=== PATIENT | male | born 1970 | race Caucasian/White ===

== ENCOUNTER 2016-12-22 16:05 | Emergency (ER) | payer MEDICARE ==
[2016-12-22 16:26] LABS: #Basophils 0.1 thou/uL (0.0-0.2); #Eosinphils 0.1 thou/uL (0.0-0.7); #Lymphocytes 1.3 thou/uL (1.20-3.40); #Monocytes 0.6 thou/uL (0.11-0.59); #Neutrophils 8.6 thou/uL (1.40-6.50); %Basophils 0.7 % (0.0-1.0); %Eosinophils 0.7 % (0.0-10.0); %Lymphocytes 11.9 % (21.0-51.0); %Monocytes 5.6 % (0.0-10.0); %Neutrophils 81.1 % (42.0-75.0); Hemoglobin 18.7 g/dL (14.0-18.0); Mean Corpuscular Hemoglobin 30.8 pg (27.0-31.0); Mean Corpuscular Volume 93.3 fl (80.0-94.0); Platelet Count 335 thou/uL (130-400); RBC Distribution Width 11.7 % (11.5-14.5); Red Blood Cell (RBC) Count 6.07 mill/uL (4.70-6.10); White Blood Cell (WBC) Count 10.5 thou/uL (4.8-10.8)
[2016-12-22] MEDS ORDERED: Pantoprazole 40 MG VIAL ONE (16:26)
[2016-12-22] MEDS ORDERED: Ondansetron HCl/PF 4 MG/2 ML Vial ONE (16:26)
[2016-12-22 16:42] LABS: ALT (SGPT) 15 U/L (8-55); AST (SGOT) 20 U/L (5-34); Albumin 4.8 g/dL (3.5-5.0); Alkaline Phosphatase 100 U/L (40-150); Anion Gap 16 mmol/L (10-20); BUN (Urea Nitrogen) 14 mg/dL (8.9-20.6); Bilirubin, Total 0.7 mg/dL (0.2-1.2); CK (CPK) 370 U/L (30-200); Calc. Creatinine Clearance 0 mL/min (70-130); Carbon Dioxide 24 mmol/L (22-29); Chloride 103 mmol/L (98-107); Estimated GFR-MDRD 86; Globulin 3.7 g/dL (2.4-3.5); Glucose 158 mg/dL (70-105); Lipase 10 U/L (8-78); Potassium 3.9 mmol/L (3.5-5.1); Protein, Total 8.5 g/dL (6.0-8.3); Sodium 139 mmol/L (136-145)
[2016-12-22 16:44] LABS: CKMB 3.8 ng/mL (0-6.6); Troponin I Less than 0.010 ng/mL (< 0.028)
[2016-12-22] MEDS ORDERED: Labetalol HCl 100 MG/20 ML VIAL ONE (17:26)
[2016-12-22] MEDS ORDERED: Benzocaine 20% Spray 60 ML CAN ONE (18:05)
[2016-12-22] MEDS ORDERED: Lidocaine 1% 20 ML MDV ONE (18:07)
--- NOTE | 2016-12-22 21:12 | RAD ---
PORTABLE CHEST Date: 12-22-16 An AP portable film at 1634 is compared with a 09-02-15 study. FINDINGS: The heart size is unchanged. There is no vascular congestion, edema, or pleural effusion. No focal p ulmonary infiltrate was seen. The trachea is midline. IMPRESSION: No acute thoracic finding. POS: HOME
--- NOTE | 2016-12-22 21:26 | CT ---
CT ABDOMEN AND PELVIS WITH CONTRAST: Date: 12-22-16 Technique: Spiral CT of the abdomen and pelvis was performed for evaluation of abdominal pain and ri ght lower back pain. Axial slices were acquired then coronal reconstructions were done. FINDINGS: The major finding on this study is dilated fluid filled loops of small bowel that range up to 3.6 cm in diameter. The small bowel remains dilated down to a transitional point in the ileum. Last few fe et of the terminal ileum returns to a normal size. The colon is normal in size as well. The findings are consistent with a distal small bowel obstruction. No free air or free fluid was appreciated. The lung bases are clear. The liver, spleen, pancreas, gallbladder, adrenal glands, and kidneys show ed no acute findings. There was no sign of hydronephrosis or ureteral calculi. The abdominal aorta w as normal in caliber throughout with no sign of aneurysm. CT of the pelvis was remarkable for a fluid collection between the urinary bladder and the rectum wh ich measured about 5.1 cm in diameter. It seems fairly contained and I would wonder if it might not be a bladder diverticulum as it is at least adjacent to the bladder, but I cannot prove a connection . Further studies would be needed to better define it. None of the patient's prior imaging studies s howed this area to compare with. Fat filled inguinal hernias are present bilaterally. I cannot adequ ate evaluate the patient's lumbar spine due to intense artifact from prior fusion with pedicle screw s. IMPRESSION: 1. Findings consistent with a distal small bowel obstruction with a transition point in the distal i leum. 2. Fluid collection between the bladder and rectum that seems contained and it is adjacent to the bl adder. It could be a bladder diverticulum, but this is not certain. Entities such as duplication cys ts might be a consideration. Other imaging would be needed to better characterize it. 3. No evidence of urinary tract obstruction or stones. 4. No evidence of aortic aneurysm. 5. Bilateral fat filled inguinal hernias. POS: HOME
== END 2016-12-22 18:40 | disposition short-term general hospital (02) ==
LOC: BURERS 16:05 → EDSEX 16:05 → BURERS 18:40
DX: K56.60 Unspecified intestinal obstruction (principal); I10 Essential (primary) hypertension; I20.9 Angina pectoris, unspecified; Q25.43 Congenital aneurysm of aorta; F17.210 Nicotine dependence, cigarettes, uncomplicated
CPT/HCPCS: 71010; 74177; 80053; 82550; 82553; 83690; 84484; 85025; 93005; 96361; 96374; 96375; 96376; C9113; J2001; J2270; J2405

== ENCOUNTER 2018-02-22 21:11 | Emergency (ER) | payer MEDICARE ==
[2018-02-22] MEDS ORDERED: Acetaminophen/Codeine 30-300mg Tablet ONE (21:36)
[2018-02-22] MEDS ORDERED: Ketorolac Tromethamine 60 MG/2 ML VIAL ONE (21:36)
[2018-02-22] MEDS ORDERED: Orphenadrine Citrate 60 MG/2 ML VIAL ONE (21:36)
== END 2018-02-22 22:09 | disposition home or self-care (01) ==
LOC: BURERS 21:11
DX: M54.5 Low back pain (principal); I10 Essential (primary) hypertension; F17.210 Nicotine dependence, cigarettes, uncomplicated; N40.0 Benign prostatic hyperplasia without lower urinary tract symptoms; D64.9 Anemia, unspecified; Z79.899 Other long term (current) drug therapy
CPT/HCPCS: 96372; J1885; J2360

== ENCOUNTER 2018-10-06 16:25 | Emergency (ER) | payer MEDICARE ==
[2018-10-06] MEDS ORDERED: Benzonatate 100 MG CAP ONE (16:48)
[2018-10-06] MEDS ORDERED: methylPREDNISolone Acetate 40 mg/ml Vial ONE (17:10)
[2018-10-06] MEDS ORDERED: Azithromycin 250 MG TAB ONE (17:10)
--- NOTE | 2018-10-06 20:23 | RAD ---
CHEST TWO VIEWS: 10/06/18 Comparison is made with a 12/22/16 study. The heart is normal in size. There is no vascular congestion, edema, or pleural effusion. No focal pu lmonary infiltrate was seen. Median sternotomy sutures are noted as usual. IMPRESSION: No acute thoracic finding. POS: HOME
== END 2018-10-06 17:16 | disposition home or self-care (01) ==
LOC: BURERS 16:25
DX: J20.9 Acute bronchitis, unspecified (principal); J01.90 Acute sinusitis, unspecified; D64.9 Anemia, unspecified; I10 Essential (primary) hypertension; F17.210 Nicotine dependence, cigarettes, uncomplicated; I20.9 Angina pectoris, unspecified; Z79.899 Other long term (current) drug therapy
CPT/HCPCS: 71046; 96372; J1030

== ENCOUNTER 2019-01-23 22:26 | Emergency (ER) | payer MEDICARE ==
[2019-01-23 23:30] LABS: #Basophils 0.1 thou/uL (0.0-0.2); #Eosinphils 0.1 thou/uL (0.0-0.7); #Lymphocytes 1.8 thou/uL (1.20-3.40); #Monocytes 0.5 thou/uL (0.11-0.59); #Neutrophils 4.6 thou/uL (1.40-6.50); %Basophils 1.6 % (0.0-1.0); %Eosinophils 2.1 % (0.0-10.0); %Lymphocytes 25.4 % (21.0-51.0); %Monocytes 7.4 % (0.0-10.0); %Neutrophils 63.5 % (42.0-75.0); Mean Corpuscular HGB CONC 32.2 g/dL (32.0-36.0); Mean Corpuscular Hemoglobin 29.5 pg (27.0-31.0); Mean Corpuscular Volume 91.7 fL (78.0-98.0); Mean Platelet Volume 5.9 fL (7.4-10.4); Platelet Count 283 thou/uL (130-400); RBC Distribution Width 11.8 % (11.5-14.5); White Blood Cell (WBC) Count 7.2 thou/uL (4.8-10.8)
[2019-01-23 23:31] LABS: Manual Diff?? NO
[2019-01-23 23:32] LABS: MDiff Complete? YES
[2019-01-23] MEDS ORDERED: Fentanyl 100 MCG/2 ML VIAL ONE (23:36)
[2019-01-23 23:43] LABS: ALT (SGPT) 11 U/L (8-55); AST (SGOT) 14 U/L (5-34); Albumin 4.6 g/dL (3.5-5.0); Alkaline Phosphatase 97 U/L (40-150); Anion Gap 16 mmol/L (10-20); BUN (Urea Nitrogen) 13 mg/dL (8.4-25.7); Bilirubin, Total 0.5 mg/dL (0.2-1.2); CK (CPK) 199 U/L (30-200); Calc. Creatinine Clearance 0 mL/min (70-130); Calcium 9.8 mg/dL (7.8-10.44); Carbon Dioxide 24 mmol/L (22-29); Chloride 103 mmol/L (98-107); Estimated GFR-MDRD 66; Globulin 3.2 g/dL (2.4-3.5); Glucose 92 mg/dL (70-105); Potassium 3.5 mmol/L (3.5-5.1); Protein, Total 7.8 g/dL (6.0-8.3); Sodium 139 mmol/L (136-145)
[2019-01-23] MEDS ORDERED: Ondansetron PF 4 MG/2 ML Vial ONE (23:53)
[2019-01-23] MEDS ORDERED: Aspirin Chewable 81 MG TAB ONE (23:55)
[2019-01-23] MEDS ORDERED: Nitroglycerin 0.4 MG TAB 1 EACH ONE (23:55)
[2019-01-24 00:02] LABS: CKMB 2.2 ng/mL (0-6.6)
[2019-01-24] MEDS ORDERED: Nitroglycerin 50 MG/250 ML BOT 250 ML ONE (00:03)
[2019-01-24] MEDS ORDERED: Acetaminophen 500 MG TAB ONE (00:03)
[2019-01-24] MEDS ORDERED: Enoxaparin Sodium 100 MG/ML SYRINGE ONE (00:03)
--- NOTE | 2019-01-24 00:03 | CT ---
CT BRAIN NONCONTRAST: DATE: 01/23/2019 Time: 11:45 PM HISTORY: 49-year-old male with headache FINDINGS: There is no evidence of acute intra-axial or extra-axial hemorrhage. There is no midline shift or any other mass effect. There is no extra-axial fluid collection. There is no evidence of obstructive hydrocephalus. Calvarium is intact. IMPRESSION: No acute intracranial findings.
[2019-01-24 00:13] LABS: Bilirubin Negative (Negative); Blood, Urine Negative (Negative); Clarity Clear (Clear); Glucose, Urine (Dipstick) Negative (Negative); Leukocyte Negative (Negative); Nitrite Negative (Negative); Protein, Urine (Dipstick) Negative (Neg-Trace); Specific Gravity, Urine 1.007 (1.002-1.036); Urobilinogen 0.2 mg/dL (0.2-1.0); pH, Urine 5.5 (5.0-9.0)
--- NOTE | 2019-01-24 00:22 | RAD ---
RADIOGRAPH CHEST 1 VIEW: DATE: 01/24/2019 HISTORY: Chest pain in 49-year-old male FINDINGS: There are no airspace densities, pulmonary edema, pneumothorax, or cardiomegaly. The lateral costophr enic angles are sharp. Sternotomy wires. IMPRESSION: No acute cardiopulmonary findings.
== END 2019-01-24 00:30 | disposition short-term general hospital (02) ==
LOC: BURERS 22:26
DX: I21.4 Non-ST elevation (NSTEMI) myocardial infarction (principal); I10 Essential (primary) hypertension; F17.210 Nicotine dependence, cigarettes, uncomplicated; Z79.899 Other long term (current) drug therapy
CPT/HCPCS: 36416; 70450; 71045; 80053; 81003; 82550; 82553; 84484; 85025; 93005; 96361; 96365; 96372; 96375; J1650; J2405; J3010

== ENCOUNTER 2019-04-05 13:39 | Emergency (ER) | payer MEDICARE ==
[2019-04-05] MEDS ORDERED: HYDROcodone/Acetaminophen 10/325 mg Tablet ONE (14:05)
[2019-04-05] MEDS ORDERED: Ketorolac Tromethamine 30 MG/ML VIAL ONE (14:05)
[2019-04-05 14:10] LABS: Bilirubin Small (Negative); Blood, Urine Trace (Negative); Clarity Clear (Clear); Glucose, Urine (Dipstick) Negative (Negative); Leukocyte Negative (Negative); Nitrite Negative (Negative); Protein, Urine (Dipstick) 30 mg/dL (Neg-Trace); Urobilinogen 0.2 mg/dL (Less than 2)
[2019-04-05 14:19] LABS: Bacteria/HPF 2+ HPF (None Seen); Mucous/LPF 4+ LPF (<2+); RBC/HPF 0-3 HPF (0-3); Squamous Epithelial 0-3 HPF (0-3); WBC/HPF 0-3 HPF (0-3)
--- NOTE | 2019-04-05 17:43 | CT ---
CT ABDOMEN AND PELVIS WITHOUT CONTRAST: 04/05/19 Comparison is made with the prior study of 12/22/16. The lung bases are clear. The liver, spleen, pancreas, adrenal glands, gallbladder, kidneys, abdomina l aorta were unremarkable within the limitations of a noncontrast study. Some perinephric stranding is present bilaterally but it was to some degree before. There is probably a small cyst attached to the lower pole of the right kidney. I see a similar finding on the older s tudy. Regarding the abdominal aorta, there is no evidence of aneurysm. Only scant amounts of calcification were present within it. The bowel shows no distention. The previous exam shows a bowel obstruction but this is certainly not present today. The appendix appears normal. There is no bowel wall thickening. No free air or free fl uid was seen. CT of the pelvis shows bilateral fat filled inguinal hernias as before. No pelvic mass, inflammatory change, or free fluid was noted. There has been a posterior fusion with pedicle screws in the lower l umbosacral levels. IMPRESSION: 1. No acute findings to explain the patient's abdominal pain. 2. Presumed small cyst attached to the lower pole of the right kidney. POS: HOME
== END 2019-04-05 14:55 | disposition home or self-care (01) ==
LOC: BURERS 13:39
DX: M54.5 Low back pain (principal); G89.29 Other chronic pain; I10 Essential (primary) hypertension; N40.0 Benign prostatic hyperplasia without lower urinary tract symptoms; D64.9 Anemia, unspecified; F17.210 Nicotine dependence, cigarettes, uncomplicated
CPT/HCPCS: 74176; 81003; 81015; 96372; J1885

== ENCOUNTER 2020-06-27 18:36 | Emergency (ER) | payer MEDICARE ==
[2020-06-27] MEDS ORDERED: Albuterol 200 PUFF (6.7GM INHALER) ONE (20:44)
--- NOTE | 2020-06-28 07:02 | RAD ---
CHEST 2 VIEWS: Date: 06/27/2020 Comparison is made with the prior study of 04/11/2019. The heart size remains normal. A cardiac pacer is in place. An ovoid density in the left mid lung zon e is again seen. 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 It is perha ps slightly larger than the 2019 study. No major lobar consolidation was seen. There is, however, some prominence of the some of the lung mar kings in the right lung. The interstitial markings of this lung are more conspicuous now than they we re last year. This could signify bronchitis or infection. There are no effusions. IMPRESSION: 1. Mild increase in prominence of some of the right lung markings. Against the context of cough and shortness of breath, bronchitis or infection are possibilities. If the patient does not respond to co nventional treatment, it may be appropriate to do an elective CT of the chest to investigate the lung s further. 2. 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 POS: HOME
== END 2020-06-27 20:50 | disposition home or self-care (01) ==
LOC: BURERS 18:36
DX: J20.9 Acute bronchitis, unspecified (principal); Z20.828 Contact with and (suspected) exposure to other viral communicable diseases
CPT/HCPCS: 71046

== ENCOUNTER 2020-11-21 03:59 | Emergency (ER) | payer MEDICARE ==
[2020-11-21] MEDS ORDERED: methylPREDNISolone Sod Succ/PF 125 MG/2 ML VIAL ONE (05:04)
== END 2020-11-21 05:00 | disposition home or self-care (01) ==
LOC: BURERS 03:59
DX: M54.12 Radiculopathy, cervical region (principal); N40.0 Benign prostatic hyperplasia without lower urinary tract symptoms; I10 Essential (primary) hypertension; I25.10 Atherosclerotic heart disease of native coronary artery without angina pectoris; I25.2 Old myocardial infarction; F17.210 Nicotine dependence, cigarettes, uncomplicated; Z79.899 Other long term (current) drug therapy; Z79.82 Long term (current) use of aspirin
CPT/HCPCS: 99284; J2930

== ENCOUNTER 2021-08-29 11:38 | Emergency (ER) | payer MEDICARE | END 2021-08-29 18:24 | disposition left against medical advice (07) | LOC: BURERS 11:38 | DX: Z53.21 Procedure and treatment not carried out due to patient leaving prior to being seen by health care provider (principal) ==

== ENCOUNTER 2021-09-21 14:25 | Emergency (ER) | payer MEDICARE ==
[2021-09-21 15:03] LABS: #Basophils 0.1 thou/uL (0.0-0.2); #Eosinphils 0.1 thou/uL (0.0-0.7); #Lymphocytes 1.4 thou/uL (1.20-3.40); #Monocytes 0.7 thou/uL (0.11-0.59); #Neutrophils 4.6 thou/uL (1.40-6.50); %Basophils 1.7 % (0.0-1.0); %Eosinophils 1.8 % (0.0-10.0); %Lymphocytes 20.1 % (21.0-51.0); %Monocytes 9.6 % (0.0-10.0); %Neutrophils 66.8 % (42.0-75.0); Hemoglobin 17.9 g/dL (14.0-18.0); Mean Corpuscular HGB CONC 33.2 g/dL (32.0-36.0); Mean Corpuscular Hemoglobin 30.6 pg (27.0-31.0); Mean Corpuscular Volume 92.1 fL (78.0-98.0); Mean Platelet Volume 5.8 fL (7.4-10.4); Platelet Count 268 thou/uL (130-400); RBC Distribution Width 12.1 % (11.5-14.5); Red Blood Cell (RBC) Count 5.86 mill/uL (4.70-6.10); White Blood Cell (WBC) Count 6.9 thou/uL (4.8-10.8)
[2021-09-21] MEDS ORDERED: Morphine 4 MG/ML VIAL ONE ×2 (15:04→15:35)
[2021-09-21] MEDS ORDERED: diphenhydrAMINE 50 MG/ML VIAL ONE (15:04)
[2021-09-21 15:20] LABS: Blood, Urine Large (Negative); Clarity Cloudy (Clear); Specific Gravity, Urine 1.015 (1.005-1.030); pH, Urine 8.5 (5.0-9.0)
[2021-09-21 15:26] LABS: ALT (SGPT) 33 U/L (8-55); AST (SGOT) 27 U/L (5-34); Albumin 4.4 g/dL (3.5-5.0); Alkaline Phosphatase 79 U/L (40-110); Anion Gap 16 mmol/L (10-20); BUN (Urea Nitrogen) 11 mg/dL (8.4-25.7); Calc. Creatinine Clearance 0 mL/min (70-130); Calcium 9.3 mg/dL (7.8-10.44); Carbon Dioxide 22 mmol/L (22-29); Chloride 103 mmol/L (98-107); Glucose 106 mg/dL (70-105); Potassium 4.2 mmol/L (3.5-5.1); Protein, Total 7.4 g/dL (6.0-8.3); Sodium 137 mmol/L (136-145)
[2021-09-21 15:26] LABS: Bilirubin Unable to Interpret (Negative)
[2021-09-21 15:27] LABS: Glucose, Urine (Dipstick) Unable to Interpret mg/dL (Negative); Ketone, Urine Unable to Interpret mg/dL (Negative); Leukocyte Unable to Interpret (Negative); Nitrite Unable to Interpret (Negative); Protein, Urine (Dipstick) Unable to Interpret mg/dL (Neg-Trace); Urobilinogen UNABLE TO INTERPRET mg/dL (Less than 2)
[2021-09-21 15:42] LABS: RBC/HPF Greater than 50 HPF (0-3); Squamous Epithelial None Seen HPF (0-3); WBC/HPF None Seen HPF (0-3)
[2021-09-21 15:43] LABS: Bacteria/HPF None Seen HPF (None Seen)
[2021-09-21] MEDS ORDERED: HYDROcodone/Acetaminophen 5/325 mg Tablet ONE (16:38)
== END 2021-09-21 16:42 | disposition home or self-care (01) ==
LOC: BURERS 14:25
DX: N20.1 Calculus of ureter (principal); R31.0 Gross hematuria; I10 Essential (primary) hypertension; E78.5 Hyperlipidemia, unspecified; F17.210 Nicotine dependence, cigarettes, uncomplicated; Z87.442 Personal history of urinary calculi; Z79.01 Long term (current) use of anticoagulants; Z79.82 Long term (current) use of aspirin; Z79.899 Other long term (current) drug therapy
CPT/HCPCS: 74176; 80053; 81003; 81015; 85025; 94760; 96374; 96375; J1200; J2270

== ENCOUNTER 2022-01-17 14:05 | Emergency (ER) | payer MEDICARE ==
[2022-01-17] MEDS ORDERED: Boostrix 0.5 ML (Tdap) VIAL ONE (14:24)
[2022-01-17] MEDS ORDERED: Ciprofloxacin 500 MG TAB ONE (14:24)
[2022-01-17] MEDS ORDERED: Sulfameth/Trimethoprim DS 800-160mg TAB ONE (14:24)
== END 2022-01-17 14:32 | disposition home or self-care (01) ==
LOC: BURERS 14:05
DX: S81.031A Puncture wound without foreign body, right knee, initial encounter (principal); L03.115 Cellulitis of right lower limb; I10 Essential (primary) hypertension; E78.5 Hyperlipidemia, unspecified; F17.210 Nicotine dependence, cigarettes, uncomplicated; W57.XXXA Bitten or stung by nonvenomous insect and other nonvenomous arthropods, initial encounter; Z23 Encounter for immunization
CPT/HCPCS: 90471; 90715; 99283

== ENCOUNTER 2022-03-04 13:32 | Emergency (ER) | payer MEDICARE ==
[2022-03-04] MEDS ORDERED: Meclizine HCl 25 MG TAB ONE (14:02)
[2022-03-04] MEDS ORDERED: Ondansetron PF 4 MG/2 ML Vial ONE (14:02)
[2022-03-04 14:12] LABS: #Basophils 0.1 thou/uL (0.0-0.2); #Eosinphils 0.1 thou/uL (0.0-0.7); #Lymphocytes 1.3 thou/uL (1.20-3.40); #Monocytes 0.5 thou/uL (0.11-0.59); #Neutrophils 5.2 thou/uL (1.40-6.50); %Basophils 0.9 % (0.0-1.0); %Eosinophils 1.6 % (0.0-10.0); %Lymphocytes 18.2 % (21.0-51.0); %Monocytes 7.2 % (0.0-10.0); Mean Corpuscular Hemoglobin 31.2 pg (27.0-31.0); Mean Corpuscular Volume 94.7 fL (78.0-98.0); Mean Platelet Volume 5.3 fL (7.4-10.4); Platelet Count 271 thou/uL (130-400); RBC Distribution Width 12.7 % (11.5-14.5); Red Blood Cell (RBC) Count 5.46 mill/uL (4.70-6.10); White Blood Cell (WBC) Count 7.2 thou/uL (4.8-10.8)
[2022-03-04 14:40] LABS: ALT (SGPT) 12 U/L (8-55); AST (SGOT) 11 U/L (5-34); Albumin 3.7 g/dL (3.5-5.0); Alkaline Phosphatase 66 U/L (40-110); Anion Gap 13 mmol/L (10-20); BUN (Urea Nitrogen) 8 mg/dL (8.4-25.7); Bilirubin, Total 0.5 mg/dL (0.2-1.2); Calc. Creatinine Clearance 0 mL/min (70-130); Calcium 8.6 mg/dL (7.8-10.44); Carbon Dioxide 23 mmol/L (22-29); Chloride 109 mmol/L (98-107); Estimated GFR 105; Globulin 2.3 g/dL (2.4-3.5); Glucose 86 mg/dL (70-105); Sodium 141 mmol/L (136-145)
[2022-03-04] MEDS ORDERED: Morphine 4 MG/ML VIAL ONE (16:07)
[2022-03-04 16:51] LABS: Troponin I Less than 0.010 ng/mL (< 0.028)
== END 2022-03-04 17:27 | disposition home or self-care (01) ==
LOC: BURERS 13:32
DX: R07.9 Chest pain, unspecified (principal); R42 Dizziness and giddiness; S39.012A Strain of muscle, fascia and tendon of lower back, initial encounter; E78.5 Hyperlipidemia, unspecified; I10 Essential (primary) hypertension; F17.210 Nicotine dependence, cigarettes, uncomplicated
CPT/HCPCS: 36415; 71045; 80053; 82550; 84484; 85025; 93005; J2270; J2405

== ENCOUNTER 2022-06-07 20:56 | Emergency (ER) | payer MEDICARE ==
[2022-06-07] MEDS ORDERED: methylPREDNISolone Sod Succ/PF 125 MG/2 ML VIAL ONE (21:11)
[2022-06-07] MEDS ORDERED: Famotidine/PF 20 mg/2ml Vial ONE (21:11)
[2022-06-07] MEDS ORDERED: diphenhydrAMINE 50 MG/ML VIAL ONE (21:11)
== END 2022-06-07 22:10 | disposition home or self-care (01) ==
LOC: BURERS 20:56
DX: L50.0 Allergic urticaria (principal); I10 Essential (primary) hypertension; E78.5 Hyperlipidemia, unspecified; F17.210 Nicotine dependence, cigarettes, uncomplicated
CPT/HCPCS: 96374; 96375; J1200; J2930; S0028

== ENCOUNTER 2022-09-25 22:45 | Emergency (ER) | payer MEDICARE ==
[2022-09-25] MEDS ORDERED: Ipratropium/Albuterol 3 ML NEB ONE (23:09)
[2022-09-25] MEDS ORDERED: Dexamethasone 4 MG TAB ONE (23:32)
[2022-09-25] MEDS ORDERED: Ketorolac Tromethamine 30 MG/ML VIAL ONE (23:32)
== END 2022-09-25 23:40 | disposition home or self-care (01) ==
LOC: BURERS 22:45
DX: U07.1 COVID-19 (principal); J44.9 Chronic obstructive pulmonary disease, unspecified; I10 Essential (primary) hypertension; E78.5 Hyperlipidemia, unspecified; F17.210 Nicotine dependence, cigarettes, uncomplicated; Z79.82 Long term (current) use of aspirin; Z79.899 Other long term (current) drug therapy
CPT/HCPCS: 94640; 96372; J1885; J7620; J8540

== ENCOUNTER 2022-11-26 15:54 | Emergency (ER) | payer MEDICARE ==
[~2022-11-26 15:54] MED LIST: Iopamidol 370 76% 100 ML VIAL ONE
[2022-11-26] MEDS ORDERED: Ondansetron PF 4 MG/2 ML Vial ONE (16:09)
[2022-11-26] MEDS ORDERED: Ketorolac Tromethamine 30 MG/ML VIAL ONE (16:09)
[2022-11-26 16:21] LABS: #Basophils 0.1 thou/uL (0.0-0.2); #Lymphocytes 1.2 thou/uL (1.20-3.40); #Monocytes 0.5 thou/uL (0.11-0.59); #Neutrophils 5.2 thou/uL (1.40-6.50); %Basophils 1.2 % (0.0-1.0); %Eosinophils 0.3 % (0.0-10.0); %Lymphocytes 17.2 % (21.0-51.0); %Monocytes 7.4 % (0.0-10.0); Hemoglobin 18.2 g/dL (14.0-18.0); Mean Corpuscular HGB CONC 32.1 g/dL (32.0-36.0); Mean Corpuscular Hemoglobin 30.7 pg (27.0-31.0); Mean Corpuscular Volume 95.8 fl (78.0-98.0); Mean Platelet Volume 5.8 fL (7.4-10.4); Platelet Count 274 10x3/uL (130-400); RBC Distribution Width 12.2 % (11.5-14.5); Red Blood Cell (RBC) Count 5.91 mill/uL (4.70-6.10); White Blood Cell (WBC) Count 7.1 10x3/uL (4.8-10.8)
[2022-11-26] MEDS ORDERED: Morphine 4 MG/ML VIAL ONE (16:27)
[2022-11-26 16:34] LABS: ALT (SGPT) 9 U/L (8-55); AST (SGOT) 11 U/L (5-34); Albumin 4.2 g/dL (3.5-5.0); Alkaline Phosphatase 66 U/L (40-110); Anion Gap 13 mmol/L (10-20); BUN (Urea Nitrogen) 7 mg/dL (8.4-25.7); Bilirubin, Total 0.9 mg/dL (0.2-1.2); Calc. Creatinine Clearance 0 mL/min (70-130); Calcium 9.2 mg/dL (7.8-10.44); Carbon Dioxide 24 mmol/L (22-29); Chloride 107 mmol/L (98-107); Estimated GFR 102; Globulin 2.8 g/dL (2.4-3.5); Glucose 126 mg/dL (70-105); Lipase 36 U/L (8-78); Potassium 3.8 mmol/L (3.5-5.1); Sodium 140 mmol/L (136-145)
[2022-11-26] MEDS ORDERED: HYDROmorphone 0.5 MG/0.5 ML SYRINGE ONE ×3 (16:47→19:02)
[2022-11-26] MEDS ORDERED: cloNIDine 0.1 MG TAB ONE (17:28)
[2022-11-26 18:51] LABS: Troponin I 0.012 ng/mL (< 0.028)
== END 2022-11-26 19:17 | disposition home or self-care (01) ==
LOC: BURERS 15:54
DX: R09.1 Pleurisy (principal); I10 Essential (primary) hypertension; E78.5 Hyperlipidemia, unspecified; F17.210 Nicotine dependence, cigarettes, uncomplicated; Z79.899 Other long term (current) drug therapy; Z79.82 Long term (current) use of aspirin; Z79.01 Long term (current) use of anticoagulants
CPT/HCPCS: 36415; 71045; 71275; 80053; 83605; 83690; 83735; 83880; 84443; 84484; 85025; 85379; 93005; 96374; 96375; 96376; J1170; J1885; J2270; J2405; Q9967

== ENCOUNTER 2023-05-20 09:39 | Emergency (ER) | payer MEDICARE ==
[2023-05-20] MEDS ORDERED: Ketorolac Tromethamine 60 MG/2 ML VIAL ONE (09:45)
[2023-05-20] MEDS ORDERED: Dexamethasone 10 MG/ML VIAL ONE (09:45)
== END 2023-05-20 10:26 | disposition home or self-care (01) ==
LOC: BURERS 09:39
DX: J04.0 Acute laryngitis (principal); R05.9 Cough, unspecified; I10 Essential (primary) hypertension; F17.210 Nicotine dependence, cigarettes, uncomplicated
CPT/HCPCS: 70360; 71046; 96372; J1100; J1885

== ENCOUNTER 2025-04-15 21:14 | Emergency (ER) | payer MEDICARE, OTHER | END 2025-04-15 21:50 | disposition home or self-care (01) | LOC: BURERS 21:14 | DX: S40.261A Insect bite (nonvenomous) of right shoulder, initial encounter (principal); I10 Essential (primary) hypertension; E78.5 Hyperlipidemia, unspecified; F17.210 Nicotine dependence, cigarettes, uncomplicated; I71.9 Aortic aneurysm of unspecified site, without rupture; Z95.0 Presence of cardiac pacemaker; W57.XXXA Bitten or stung by nonvenomous insect and other nonvenomous arthropods, initial encounter | CPT/HCPCS: 99281 ==